=== PATIENT | female | born 1990 | race Caucasian/White ===

== ENCOUNTER 2022-10-04 23:38 | Emergency (ER) | payer OTHER ==
[2022-10-04] MEDS ORDERED: ONDANSETRON 4 MG/2 ML VIAL IVPUSH ONE (23:48)
[2022-10-04] MEDS ORDERED: SODIUM CHLORIDE 1,000 ML IV ONE (23:48)
[2022-10-05 00:19] VITALS: TEMP 98.4; BMI 23.8
[2022-10-05 00:48] LABS: HEMATOCRIT 38.1 % (32.4-45.2); MCH 30.3 pg (25.7-33.7); MCHC 34.1 g/dl (32.0-36.0); MEAN CELL VOLUME 89.1 fl (80-96); MEAN PLT VOLUME 10.5 fl (7.5-11.1); PLATELET COUNT 187 10^3/uL (134-434); RBC 4.28 M/mm3 (3.60-5.2); RDW 13.5 % (11.6-15.6); WHITE BLOOD COUNT 10.4 K/mm3 (4.0-10.0)
[2022-10-05 01:06] LABS: POTASSIUM 3.9 mmol/L (3.5-5.1)
[2022-10-05 01:08] LABS: BLOOD UREA NITROGEN 16.4 mg/dL (7-18)
[2022-10-05 01:11] LABS: CREATININE 0.8 mg/dL (0.55-1.3)
[2022-10-05 01:13] LABS: BILIRUBIN,TOTAL 0.9 mg/dL (0.2-1)
[2022-10-05 01:21] LABS: PH,URINE 8.5 (5.0-8.0); URINE APPEARANCE CLEAR; URINE BILIRUBIN NEGATIVE (NEGATIVE); URINE COLOR YELLOW; URINE GLUCOSE (UA) NEGATIVE (NEGATIVE); URINE KETONE TRACE (NEGATIVE); URINE LEUK ESTERASE NEGATIVE (NEGATIVE); URINE NITRITE NEGATIVE (NEGATIVE); URINE PROTEIN NEGATIVE (NEGATIVE)
[2022-10-05 01:44] VITALS: BP 97/54; PULSE 62; RESP 16
== END 2022-10-05 01:46 | disposition home or self-care (01) ==
LOC: FER 23:38
PROC: 3E033GC Introduction of Other Therapeutic Substance into Peripheral Vein, Percutaneous Approach (ICD-10-PCS; principal; 2022-10-05)
PROC: 3E0337Z Introduction of Electrolytic and Water Balance Substance into Peripheral Vein, Percutaneous Approach (ICD-10-PCS; 2022-10-05)
DX: R11.2 Nausea with vomiting, unspecified (principal); R50.9 Fever, unspecified; R30.0 Dysuria; R35.0 Frequency of micturition; M54.50 Low back pain, unspecified
CPT/HCPCS: 36415; 80053; 81003; 84703; 85027; 87086; 99284-25